=== PATIENT | female | born 1975 | race Caucasian/White ===

== ENCOUNTER 2016-10-23 08:43 | Inpatient (IN) | payer BC ==
[~2016-10-23] VITALS: Ht 167.6 cm; Wt 79.5 kg
[2016-10-23 09:36] LABS: BASOPHILS 0.4 % (0-2); EOSINOPHILS 3.4 % (0-7); HEMATOCRIT 43.6 % (36.0-48.0); HEMOGLOBIN 14.9 g/dL (12-16); IMMATURE GRANULOCYTES 0.2 % (0-5); LYMPHOCYTES 23.4 % (15-50); MCH 33.3 pg (26.0-34.0); MCHC 34.2 g/dL (31.0-37.0); MCV 97.3 fL (80.0-100.0); MEAN PLATELET VOLUME 9.7 fL (7.4-10.4); MONOCYTES 6.4 % (2-11); NEUTROPHILS 66.2 % (40-80); PLATELET COUNT 224 10x3/uL (130-400); RBC 4.48 10x6/uL (4.00-5.40); RDW 13.1 % (11.5-14.5); WBC 8.1 10x3/uL (4.8-10.8)
[2016-10-23 09:49] LABS: ALBUMIN 3.8 g/dL (3.4-5.0); ALKALINE PHOSPHATASE 71 U/L (46-116); ALT (SGPT) 29 U/L (10-68); CALC OSMOLALITY 278 mosm/kg (275-300); CALCIUM 9.1 mg/dL (8.5-10.1); CARBON DIOXIDE 27.4 mmol/L (21.0-32.0); CHLORIDE - SERUM 104 mmol/L (98-107); GLUCOSE 107 mg/dL (74-106); POTASSIUM - SERUM 3.8 mmol/L (3.5-5.1); PROTEIN - SERUM 7.3 g/dL (6.4-8.2); SODIUM 140 mmol/L (136-145); UREA NITROGEN 12 mg/dL (7-18); eGFR NON AFRICAN AMERICAN 64 mL/min (90-120)
[2016-10-23 09:53] LABS: TROPONIN-I < 0.017 ng/mL (0.000-0.060)
[2016-10-23 11:20] LABS: APTT 26.3 SECONDS (22.8-39.4); INR 0.9 (0.85-1.17)
--- NOTE | 2016-10-23 12:36 | NUR ---
RECEIVED TO ROOM 2202 AT THIS TIME FROM [facility] WHEN PNEUMOTHORAX ASPIRATION WAS COMPLETE. PRESSURE DRESSING TO RIGHT POSTERIOR CHEST. OXYGEN LEVEL 98% ON 3L VIA NC. WILL CONTINUE WITH PLAN OF CARE.
[2016-10-23 12:42] VITALS: BP 127/74; Ht 167.6 cm; Wt 79.5 kg
[2016-10-23] MEDS ORDERED: CYMBALTA30 MG PO (12:53)
[2016-10-23] MEDS ORDERED: CYCLOBENZAPRINE10 MG PO (12:54)
[2016-10-23] MEDS ORDERED: LODINE400 MG PO (12:54)
[2016-10-23] MEDS ORDERED: HYDROCODON-ACE1 EAC7 PO (12:54)
[2016-10-23] MEDS ORDERED: EEMT H.S. 0.6251 TAB PO (12:55)
[2016-10-23] MEDS ORDERED: NEXIUM40 MG PO (12:55)
[2016-10-23] MEDS ORDERED: VALTREX500 MG PO (12:55)
--- NOTE | 2016-10-23 15:45 | NUR ---
IV TO LEFT AC D/C WITH CATH TIP INTACT. DENIES QUESTIONS OR CONCERNS RELATED TO D/C. WILL D/C HOME WITH SPOUSE.
== END 2016-10-23 15:45 | disposition home or self-care (01) | DRG 201 ==
LOC: D.ER 08:43 → D.MS 11:00
PROVIDERS: Emergency Medicine; ADMIT Surgery
PROC: 0W983ZZ Drainage of Chest Wall, Percutaneous Approach (ICD-10-PCS; principal; 2016-10-23)
DX: J93.9 Pneumothorax, unspecified (principal)

== ENCOUNTER → 2016-11-27 13:35 | Outpatient (CLI) | payer BC ==
[2016-10-23 12:42] VITALS: BMI 28.3
[~2016-11-27 13:35] MED LIST: CYCLOBENZAPRINE10 MG PO; CYMBALTA30 MG PO; EEMT H.S. 0.6251 TAB PO; HYDROCODON-ACE1 EAC7 PO; LODINE400 MG PO; NEXIUM40 MG PO; VALTREX500 MG PO
== END | disposition home or self-care (01) ==
LOC: D.MRI 13:35
DX: S09.93XA Unspecified injury of face, initial encounter (principal)